=== PATIENT | female | born 1935 | race Caucasian/White ===

== ENCOUNTER → 2017-12-14 | Outpatient (CLI) | payer MEDICARE ==
[~2017-12-14] MED LIST: ACET-2123 PO; ALEN70TA47 PO; AMLO2.5T PO; ATORVASTATIN PO; CALCIUM PO; CIPROFLOXACIN PO; CLON0.1T PO; CLON0.5T12 PO; CLON1TAB5 PO; GUAI600T94 PO; LABE100T5 PO; LABE200T5 PO; MULT-40 PO; NAPR250T4 PO; SOLI10TA PO; TRAM50TA4 PO; [UNRECOGNIZED DRUG - OTHER] PO
== END | disposition home or self-care (01) ==
LOC: OIH 14:53
PROVIDERS: ATTEND Internal Medicine
DX: I10 Essential (primary) hypertension (principal); I70.0 Atherosclerosis of aorta
CPT/HCPCS: 71046